=== PATIENT | female | born 1995 | race Caucasian/White ===

== ENCOUNTER 2022-06-02 21:19 | Emergency (ER) | payer OTHER, SELFPAY ==
[2022-06-02 21:25] VITALS: BP 132/80; PULSE 98; RESP 18; TEMP 36.4; O2SAT 97; BMI 34.5
--- NOTE | 2022-06-02 22:33 | ED.WOUNDLAC ---
HPI - Wound/Laceration General Chief Complaint: Wound/Laceration Stated Complaint: L index finger laceration Time Seen by Provider: 06/02/22 22:26 History of Present Illness HPI narrative: Patient is a 26-year-old female status post laceration using a knife to the left index finger. Complaining of bleeding. Patient is from home. Completely an accident. Patient is unsure of her tetanus status. Not on blood thinners. Related Data Previous Rx's Medication Instructions Recorded ibuprofen 400 mg tablet 400 mg PO Q6H PRN pain #20 tabs 06/02/22 Allergies Allergy/AdvReac Type Severity Reaction Status Date / Time No Known Allergies Allergy Verified 06/02/22 21:29 Review of Systems Review of Systems: No fever no chills no chest pain or shortness breath no systemic complaints Yes all other systems are reviewed and are negative PENDING SALE TO [facility] Past Medical History Attestation statement: The following information was validated with the patient. Social History Social History Advance Directives: No Advance Directives Information Provided: No Physical Exam Vital Signs: Vital Signs: Last Vital Signs Temp 97.6 F 06/02/22 21:25 Pulse 98 06/02/22 21:25 Resp 18 06/02/22 21:25 BP 132/80 06/02/22 21:25 Pulse Ox 97 06/02/22 21:25 O2 Del Method 06/02/22 21:25 BMI result Body Mass Index 34.5 Appearance: Alert. Oriented X3. No acute distress. Eyes: Pupils equal, round and reactive to light. ENT: Pharynx normal. Neck: Normal inspection. Neck supple. No lymph nodes noted. No crepitus CVS: Normal heart rate and rhythm. Pulses normal. Normal S1 and S2 Respiratory: No respiratory distress. Breath sounds normal. No Wheezing. No rales Abdomen: Soft and nontender. No rigidity. No distention. good BS x4 Skin: Skin warm and dry. Normal skin color. Normal skin turgor. Extremities: No lower extremity edema. Neurovascular intact to all extremities. No Lacerations. No Rash Neuro: Oriented X 3. No motor deficit. No sensory deficit. Moving all extermities. No slurred speech Exam of the left index finger showed a laceration to the into palmar surface between the PIP and PIP. Flexion at the IP PIP and MCP are intact. Sensation intact. Capillary refill less than 2 seconds. Medications Administered Discontinued Medications Generic Name Dose Route Start Last Admin Trade Name Freq PRN Reason Stop Dose Admin Lidocaine HCl 5 ml 06/02/22 22:32 06/02/22 22:49 Lidocaine Hcl 1 % Mpf 5 Ml Vial SUBCUT 06/02/22 22:33 5 ml ONCE ONE Administration MDM - Wound/Laceration MDM Narrative Medical decision making narrative: Positive 4 cm laceration to the left index finger. His wound clean closed. Will update tetanus status. Patient to be discharged home Procedures Laceration Laceration 1: Site: other (Left index finger) Side (If applicable): left Size (cm): 4 Description: stellate Depth: simple, single layer Local Anesthetic: lidocaine 1% Amount of anesthesia used (mL): 3 Pre-repair: wound explored Skin layer closed with: nylon Size (cm): 5-0 Number of sutures: 5 Technique: simple, interrupted Nerve Block Nerve Block 1: Time out performed: Yes Local Anesthetic: lidocaine 1% Amount of anesthesia used (mL): 3 Side: left Nerve Blocks: other (Metacarpal) Procedure Successful: Yes Patient Tolerated Procedure: well Discharge Plan Discharge Clinical Impression: Laceration Patient Disposition: Home, Self-Care Instructions: Finger Laceration (ED) Prescriptions: New ibuprofen 400 mg tablet 400 mg PO Q6H PRN (Reason: pain) Qty: 20 0RF Referrals: Erika Petersen MD [Primary Care Provider] - (Suture removal in 10 days)
[2022-06-02] MEDS: Lidocaine HCl 1 % MPF 5 ML VIAL SUBCUT (22:49)
[2022-06-02] MEDS: Diphth,Pertus(ACell),Tet Adult 0.5 ML SYRINGE IM (23:31)
== END 2022-06-02 23:37 | disposition home or self-care (01) ==
PROVIDERS: Emergency Provider Emergency Medicine Emergency Medical Services; PCP Pediatrics
DX: S61.211A Laceration without foreign body of left index finger without damage to nail, initial encounter (principal); W26.0XXA Contact with knife, initial encounter; Y93.G1 Activity, food preparation and clean up; Y92.010 Kitchen of single-family (private) house as the place of occurrence of the external cause; Y99.9 Unspecified external cause status
CPT/HCPCS: 12002; 90471; 90715; 99282; 99284